=== PATIENT | male | born 1995 | race Caucasian/White ===

== ENCOUNTER 2016-09-12 13:39 | Emergency (ER) | payer MEDICAID ==
[~2016-09-12 13:39] MED LIST: ADDERALL 20 MG20 MG; ADDERALL PO; ADDERALL XR 1010 M1 PO; ADDERALL XR 2525 MG; CATAPRES0.1 MG; HYDROXYZINE HCL25 M1 PO; MELATONIN3 M4 PO; MIRAPEX0.25 MG; PROPANOLOL; REQUIP1 M1 PO; REQUIP1 MG PO; REQUIP2 M1 PO; REQUIP3 M1 PO; RISPERDAL1 MG; RISPERDAL2 MG; SEROQUEL XR200 MG PO; SEROQUEL200 M2 PO; STRATTERA40 MG; TRILEPTAL300 MG; TRILEPTAL600 M2 PO; TRILEPTAL600 MG
[2016-09-12 14:29] LABS: BASO % 0.3 % (0-2); EOS % 1.8 % (0-7); EOSINOPHIL ABSOLUTE COUNT 0.1 tho/cmm (0.0-0.7); HCT-HEMATOCRIT 41.4 % (36.0-53.5); HGB-HEMOGLOBIN 14.3 gm/dl (13.5-17.0); IMMATURE GRANULOCYTES ABSOLUTE 0.01 tho/cmm (0-0.03); IMMATURE GRANULOCYTES PERCENT 0.2 % (0-0.3); LYMPH % 25.4 % (20-45); LYMPH ABSOLUTE COUNT 1.5 tho/cmm (0.8-4.5); MCH (MEAN CORPUSCULAR HGB) 29.2 pg (28.0-32.0); MCHC MEAN CORPUSCULAR HGB CONC 34.5 % (32.0-36.0); MCV (MEAN CELL VOLUME) 84.5 fl (82.0-96.0); MEAN PLATELET VOLUME 9.3 cmc (9.4-12.4); MONO % 8.3 % (0-12); MONOCYTE ABSOLUTE COUNT 0.5 tho/cmm (0.0-1.2); NEUTROPHIL ABSOLUTE COUNT 3.9 tho/cmm (1.6-8.0); NEUTROPHIL-AUTOMATED 3.9 tho/cmm (1.6-8.0); PLATELET COUNT 223 tho/cmm (150-450); RED CELL DISTRIBUTION WIDTH 13.4 % (12.4-16.4)
[2016-09-12 14:32] LABS: ANION GAP 10 mmol/L (0-20); BLOOD UREA NITROGEN 10 mg/dl (6-24); CALCIUM 9.1 mg/dl (8.5-10.5); CARBON DIOXIDE-VENOUS 30 mmol/L (22-32); CHLORIDE 103 mmol/l (96-110); CREATININE 0.86 mg/dl (0.60-1.30); GLUCOSE 85 mg/dL (70-110); SODIUM 139 mmol/L (135-145); eGFR VALUE FOR BLACK >90 mL/Min
[2016-09-12] MEDS ORDERED: TRILEPTAL150 M2 PO (14:55)
== END 2016-09-12 15:15 ==
LOC: EDMED 13:39
PROVIDERS: Emergency Medicine
DX: G40.909 Epilepsy, unspecified, not intractable, without status epilepticus (principal); F90.9 Attention-deficit hyperactivity disorder, unspecified type; Z79.899 Other long term (current) drug therapy